=== PATIENT | male | born 1950 | race Caucasian/White ===

== ENCOUNTER → 2019-04-01 15:09 | Outpatient (CLI) | payer MEDICARE, BC ==
[~2019-04-01 15:09] MED LIST: B-12 DOTS500 MCG PO; CELEXA40 MG PO; FLOMAX0.4 MG PO; LEVOTHYROXINE50 MCG PO; MULTI-DAY VITAM1 TAB PO; TOPROL XL50 MG PO; ZOCOR40 MG PO
[2019-04-03 07:22] LABS: IMMUNOGLOBULIN A 347 mg/dL (61-437); IMMUNOGLOBULIN G 1097 mg/dL (700-1600); IMMUNOGLOBULIN M 42 mg/dL (15-143)
== END | disposition home or self-care (01) ==
LOC: D.LAB 13:00 → D.CT 15:00 → D.RT 15:00 → D.LAB 15:09
PROVIDERS: ATTEND Internal Medicine Pulmonary Disease
DX: J47.9 Bronchiectasis, uncomplicated (principal); R06.00 Dyspnea, unspecified; J44.9 Chronic obstructive pulmonary disease, unspecified

== ENCOUNTER 2019-04-04 05:42 | Outpatient (CLI) | payer MEDICARE, BC ==
[~2019-04-04] VITALS: Ht 403.9 cm; Wt 84.1 kg
[2019-04-04 06:11] LABS: BASOPHILS 0.4 % (0-2); EOSINOPHILS 3.5 % (0-7); HEMATOCRIT 42.8 % (42.0-54.0); HEMOGLOBIN 13.9 g/dL (13.5-17.5); IMMATURE GRANULOCYTES 0.2 % (0-5); LYMPHOCYTES 35.2 % (15-50); MCH 29.4 pg (26.0-34.0); MCHC 32.5 g/dL (31.0-37.0); MCV 90.7 fL (80.0-100.0); MEAN PLATELET VOLUME 11.3 fL (7.4-10.4); MONOCYTES 11.3 % (2-11); NEUTROPHILS 49.4 % (40-80); PLATELET COUNT 170 10x3/uL (130-400); RBC 4.72 10x6/uL (4.20-6.10); RDW 13.1 % (11.5-14.5); WBC 5.4 10x3/uL (4.8-10.8)
[2019-04-04 07:11] LABS: APTT 39.9 SECONDS (22.8-39.4); INR 1.03 (0.85-1.17)
[2019-04-04] MEDS ORDERED: LEVOTHYROXINE50 MCG PO (07:47)
[2019-04-04] MEDS ORDERED: ZOCOR40 MG PO (07:47)
[2019-04-04] MEDS ORDERED: CELEXA40 MG PO (07:47)
[2019-04-04] MEDS ORDERED: FLOMAX0.4 MG PO (07:47)
[2019-04-04] MEDS ORDERED: TOPROL XL50 MG PO (07:48)
[2019-04-04] MEDS ORDERED: MULTI-DAY VITAM1 TAB PO (07:49)
[2019-04-04] MEDS ORDERED: B-12 DOTS500 MCG PO (07:49)
[2019-04-04 07:56] VITALS: BP 121/70; Ht 403.9 cm; Wt 84.1 kg
[2019-04-05 17:09] LABS: ACID FAST SMEAR Negative (()); AFB SPECIMEN PROCESSING Concentration (())
[2019-04-08 12:10] LABS: FUNGUS STAIN Final report (())
== END 2019-04-04 13:45 | disposition home or self-care (01) ==
LOC: D.OPS 05:42
PROVIDERS: ATTEND Internal Medicine Pulmonary Disease
DX: J47.9 Bronchiectasis, uncomplicated (principal)

== ENCOUNTER → 2019-07-05 12:56 | Outpatient (CLI) | payer MEDICARE, BC | END | disposition home or self-care (01) | LOC: D.RT 12:56 | PROVIDERS: ATTEND Internal Medicine Pulmonary Disease | DX: R06.00 Dyspnea, unspecified (principal) ==